=== PATIENT | male | born 1955 | race Caucasian/White ===

== ENCOUNTER 2024-06-02 20:16 | Emergency (ER) | payer MEDICARE, MEDICAID ==
[~2024-06-02] VITALS: Ht 172.7 cm; Wt 68.2 kg
[2024-06-02 23:06] LABS: HEMOGLOBIN 13.4 g/dL (13.5-17.5)
[2024-06-02 23:08] LABS: BASOPHILS % (AUTO) 0.2 % (0.0-2.0); EOSINOPHILS % (AUTO) 7.1 % (1.0-6.0); LYMPHOCYTES # (AUTO) 1.5 K/uL (1.0-4.8); LYMPHOCYTES % (AUTO) 21.3 % (22.0-44.0); MEAN CORPUSCULAR HEMOGLOBIN 32.8 pg (26.0-34.0); MEAN CORPUSCULAR HGB CONC 34.5 G/dL (31.0-37.0); MEAN CORPUSCULAR VOLUME 95 fL (80-100); MONOCYTES # (AUTO) 0.6 K/uL (0.1-1.0); MONOCYTES % (AUTO) 8.5 % (2.0-9.0); NEUTROPHILS # (AUTO) 4.4 K/uL (1.8-7.7); NEUTROPHILS % (AUTO) 62.9 % (40.0-70.0); PLATELET COUNT (AUTO) 213 K/uL (150-450); RED BLOOD CELL COUNT(AUTO) 4.09 MIL/uL (4.50-5.90); RED CELL DISTRIBUTION WIDTH 13.7 % (11.5-14.5)
[2024-06-02 23:27] LABS: CALCIUM, TOTAL 9.5 mg/dL (8.8-10.5); CREATININE 1.57 mg/dL (0.60-1.30); POTASSIUM 3.9 mmol/L (3.5-5.1)
[2024-06-03 00:32] VITALS: BP 132/67; PULSE 72; RESP 19; TEMP 97.3
== END 2024-06-03 00:56 | disposition home or self-care (01) ==
LOC: EMS 20:16
DX: F43.24 Adjustment disorder with disturbance of conduct (principal); I10 Essential (primary) hypertension; F15.10 Other stimulant abuse, uncomplicated
CPT/HCPCS: 80048; 85025; 99283

== ENCOUNTER 2024-06-05 22:51 | Emergency (ER) | payer MEDICARE, MEDICAID ==
[~2024-06-05] VITALS: Ht 177.8 cm; Wt 61.1 kg
[2024-06-05 23:28] VITALS: TEMP 98.1
[2024-06-05 23:29] LABS: HEMATOCRIT 42.7 % (41-53); HEMOGLOBIN 14.5 g/dL (13.5-17.5); MEAN CORPUSCULAR HEMOGLOBIN 32.2 pg (26.0-34.0); MEAN CORPUSCULAR HGB CONC 33.9 G/dL (31.0-37.0); MEAN CORPUSCULAR VOLUME 95 fL (80-100); RED CELL DISTRIBUTION WIDTH 14.1 % (11.5-14.5)
[2024-06-05 23:57] LABS: BAND NEUTROPHILS % (MANUAL) 0 % (0-5); CALCIUM, TOTAL 9.6 mg/dL (8.8-10.5); CREATININE 1.85 mg/dL (0.60-1.30); POTASSIUM 4.4 mmol/L (3.5-5.1)
[2024-06-06 00:02] LABS: LYMPHOCYTES % (MANUAL) 16 % (22-44); MONOCYTES % (MANUAL) 5 % (2-9); SEGMENTED NEUTROPHILS % 79 % (40-70); TOTAL CELLS COUNTED 100
[2024-06-06 00:03] LABS: PLATELET COUNT (AUTO) 241 K/uL (150-450)
[2024-06-06] MEDS: LORazepam 2 MG TABLET PO ONE (01:43)
[2024-06-06 07:10] VITALS: BP 125/54; PULSE 77; RESP 16
== END 2024-06-06 10:37 | disposition home or self-care (01) ==
LOC: EMS 22:51
DX: F43.29 Adjustment disorder with other symptoms (principal); I10 Essential (primary) hypertension; F15.90 Other stimulant use, unspecified, uncomplicated
CPT/HCPCS: 80048; 85025; 99284